=== PATIENT | male | born 1985 | race American Indian/Alaskan Native ===

== ENCOUNTER 2017-03-21 16:27 | Emergency (ER) | payer MEDICAID ==
[~2017-03-21] VITALS: Ht 170.2 cm; Wt 70.1 kg
[2017-03-21 16:28] VITALS: BP 132/84
== END 2017-03-21 17:32 | disposition home or self-care (01) ==
LOC: ED 17:10
DX: S16.1XXA Strain of muscle, fascia and tendon at neck level, initial encounter (principal); X58.XXXA Exposure to other specified factors, initial encounter; Y93.89 Activity, other specified; Y92.89 Other specified places as the place of occurrence of the external cause; Y99.8 Other external cause status
CPT/HCPCS: 99283

== ENCOUNTER 2017-05-13 14:53 | Emergency (ER) | payer MEDICAID ==
[~2017-05-13] VITALS: Ht 167.6 cm; Wt 70.4 kg
[2017-05-13 15:06] VITALS: BP 133/84
== END 2017-05-13 17:13 | disposition home or self-care (01) ==
LOC: ED 16:20
DX: B35.1 Tinea unguium (principal); F15.10 Other stimulant abuse, uncomplicated
CPT/HCPCS: 99281

== ENCOUNTER 2017-05-25 13:50 | Emergency (ER) | payer MEDICAID ==
[~2017-05-25] VITALS: Ht 170.2 cm; Wt 67.7 kg
[2017-05-25 13:59] VITALS: BP 121/78
[2017-05-25] MEDS ORDERED: HYDROmorphone 2 MG/ML, 1ML ONE (17:35)
== END 2017-05-26 15:32 | disposition home or self-care (01) ==
LOC: ED 15:56
DX: B34.9 Viral infection, unspecified (principal)
CPT/HCPCS: 71020; 99284

== ENCOUNTER 2017-05-26 13:31 | Emergency (ER) | payer MEDICAID ==
[~2017-05-26] VITALS: Ht 172.7 cm; Wt 65.3 kg
[2017-05-26 13:43] VITALS: BP 129/80
== END 2017-05-26 14:36 | disposition home or self-care (01) ==
LOC: ED 14:25
DX: H66.002 Acute suppurative otitis media without spontaneous rupture of ear drum, left ear (principal)
CPT/HCPCS: 99283

== ENCOUNTER 2017-05-28 06:15 | Emergency (ER) | payer MEDICAID ==
[~2017-05-28] VITALS: Ht 167.6 cm; Wt 70.0 kg
[2017-05-28 06:16] VITALS: BP 132/77
[2017-05-28] MEDS ORDERED: DEXAMETHASONE 4 MG TABLET ONE (06:29)
[2017-05-28] MEDS ORDERED: DEXAMETHASONE 1 MG TABLET PO ONE (06:30)
[2017-05-28] MEDS ORDERED: DEXAMETHASONE 4 MG TABLET PO ONE (07:00)
== END 2017-05-28 06:36 | disposition home or self-care (01) ==
LOC: ED 06:32
DX: L04.0 Acute lymphadenitis of face, head and neck (principal)
CPT/HCPCS: 99282

== ENCOUNTER 2017-06-02 10:03 | Emergency (ER) | payer MEDICAID ==
[~2017-06-02] VITALS: Ht 172.7 cm; Wt 70.0 kg
[2017-06-02 10:04] VITALS: BP 136/82
[2017-06-02] MEDS ORDERED: DEXAMETHASONE 4 MG TABLET ONE (10:44)
[2017-06-02] MEDS ORDERED: DEXAMETHASONE 4 MG TABLET PO ONE (11:00)
== END 2017-06-02 11:03 | disposition home or self-care (01) ==
LOC: ED 10:20
DX: J02.0 Streptococcal pharyngitis (principal)
CPT/HCPCS: 99283

== ENCOUNTER 2017-06-08 08:05 | Emergency (ER) | payer MEDICAID ==
[~2017-06-08] VITALS: Ht 170.2 cm; Wt 69.2 kg
[2017-06-08 08:06] VITALS: BP 131/74
[2017-06-08] MEDS ORDERED: CLINDAMYCIN 300 MG CAPSULE ONE (08:56)
[2017-06-08] MEDS ORDERED: CLINDAMYCIN 300 MG CAPSULE PO ONE (09:00)
== END 2017-06-08 09:03 | disposition home or self-care (01) ==
LOC: ED 08:35
DX: I88.9 Nonspecific lymphadenitis, unspecified (principal)
CPT/HCPCS: 99283

== ENCOUNTER 2017-07-03 18:48 | Emergency (ER) | payer MEDICAID ==
[~2017-07-03] VITALS: Ht 170.2 cm; Wt 74.6 kg
[2017-07-03 18:49] VITALS: BP 127/85
[2017-07-03] MEDS ORDERED: CLIN150C14 PO (19:28)
[2017-07-03] MEDS ORDERED: ALBU18HF INH (19:29)
== END 2017-07-03 19:44 | disposition home or self-care (01) ==
LOC: ED 19:00
DX: K08.89 Other specified disorders of teeth and supporting structures (principal); Z87.891 Personal history of nicotine dependence
CPT/HCPCS: 99281

== ENCOUNTER 2017-07-05 05:19 | Emergency (ER) | payer MEDICAID ==
[~2017-07-05] VITALS: Ht 170.2 cm; Wt 74.9 kg
[~2017-07-05 05:19] MED LIST: ALBU18HF INH; CLIN150C14 PO
[2017-07-05 05:21] VITALS: BP 143/78
== END 2017-07-05 06:38 | disposition home or self-care (01) ==
LOC: ED 05:36
DX: M79.642 Pain in left hand (principal); M25.512 Pain in left shoulder
CPT/HCPCS: 99283

== ENCOUNTER 2017-07-31 12:58 | Emergency (ER) | payer MEDICAID ==
[~2017-07-31] VITALS: Ht 167.6 cm; Wt 74.1 kg
[2017-07-31] MEDS ORDERED: DEXAMETHASONE 4 MG TABLET ONE ×2 (13:55→13:58)
[2017-07-31] MEDS ORDERED: DEXAMETHASONE 4 MG TABLET PO ONE (14:00)
[2017-07-31 14:09] VITALS: BP 148/89
== END 2017-07-31 14:11 | disposition home or self-care (01) ==
LOC: ED 13:51
DX: J02.8 Acute pharyngitis due to other specified organisms (principal); B97.89 Other viral agents as the cause of diseases classified elsewhere
CPT/HCPCS: 99283

== ENCOUNTER 2018-03-03 09:29 | Emergency (ER) | payer MEDICAID ==
[~2018-03-03] VITALS: Ht 171.4 cm; Wt 68.1 kg
[2018-03-03 09:36] VITALS: BP 138/86
== END 2018-03-03 12:28 | disposition home or self-care (01) ==
LOC: ED 12:22
DX: J20.9 Acute bronchitis, unspecified (principal); J02.8 Acute pharyngitis due to other specified organisms; B97.89 Other viral agents as the cause of diseases classified elsewhere
CPT/HCPCS: 71046; 87081; 87880; 99285

== ENCOUNTER 2018-04-06 14:45 | Emergency (ER) | payer MEDICAID ==
[~2018-04-06] VITALS: Ht 167.6 cm; Wt 72.0 kg
== END 2018-04-06 15:41 | disposition home or self-care (01) ==
LOC: ED 15:35
DX: J34.89 Other specified disorders of nose and nasal sinuses (principal); Z00.00 Encounter for general adult medical examination without abnormal findings; Z87.891 Personal history of nicotine dependence
CPT/HCPCS: 99281

== ENCOUNTER 2018-06-11 12:03 | Emergency (ER) | payer MEDICAID ==
[~2018-06-11] VITALS: Ht 170.2 cm; Wt 76.0 kg
[2018-06-11 12:50] VITALS: BP 131/76
[2018-06-11] MEDS ORDERED: DIPHENHYDRAMINE 25 MG CAPSULE PO ONE (13:00)
[2018-06-11] MEDS ORDERED: FAMOTIDINE 20 MG TABLET PO ONE (13:00)
[2018-06-11] MEDS ORDERED: FAMOTIDINE 20 MG TABLET ONE ×2 (13:37→13:39)
[2018-06-11] MEDS ORDERED: DIPHENHYDRAMINE 25 MG CAPSULE ONE ×2 (13:37→13:39)
== END 2018-06-11 13:59 | disposition home or self-care (01) ==
LOC: ED 13:38
DX: L85.3 Xerosis cutis (principal); Z87.891 Personal history of nicotine dependence
CPT/HCPCS: 99283; Q0163

== ENCOUNTER 2018-06-26 20:44 | Emergency (ER) | payer MEDICAID ==
[~2018-06-26] VITALS: Ht 167.6 cm; Wt 80.8 kg
[2018-06-26 20:54] VITALS: BP 129/78
[2018-06-26] MEDS ORDERED: NEO/POLY/HC EAR SUSP 10ML RIGHT EAR ONE (21:30)
--- NOTE | 2018-06-26 22:50 | NUR ---
Patient/Caregiver given discharge instructions and they have confirmed that they understand the instructions. Patient ambulatory with steady gait.
== END 2018-06-26 22:52 | disposition home or self-care (01) ==
LOC: ED 21:55
DX: T16.1XXA Foreign body in right ear, initial encounter (principal); H60.501 Unspecified acute noninfective otitis externa, right ear; X58.XXXA Exposure to other specified factors, initial encounter; Y93.89 Activity, other specified; Y92.89 Other specified places as the place of occurrence of the external cause; Y99.8 Other external cause status
CPT/HCPCS: 69200; 99284

== ENCOUNTER 2018-08-26 17:39 | Emergency (ER) | payer MEDICAID ==
[~2018-08-26] VITALS: Ht 167.6 cm; Wt 76.7 kg
[2018-08-26 17:41] VITALS: BP 137/78
== END 2018-08-26 18:46 | disposition home or self-care (01) ==
LOC: ED 18:13
DX: L80 Vitiligo (principal)
CPT/HCPCS: 99283